=== PATIENT | female | born 1940 | race Caucasian/White ===

== ENCOUNTER → 2017-02-12 | Outpatient (CLI) | payer MEDICARE, OTHER ==
[2016-03-17 08:07] VITALS: BP 163/80
[~2017-02-12] MED LIST: AMLO10TA4 PO; ASPI325T11 PO; BYSTOLIC20 MG PO; CELE200C PO; DENO60DI SQ; DICL100G18 TP; DIPH25CA3 PO; ENOX40DI SQ; ESOM40CA PO; FERR325T58 PO; FLUT12HF3 IH; FLUT1DIS3 IH; FURO-69 PO; GLIM4TAB PO; HYDR-2758 PO; HYDR-2869 PO; INSU100V31 SQ; LIDO700A4 TP; LORA10TA3 PO; LOSA100T2 PO; METO50TA6 PO; MONT10TA9 PO; OXYC-323 PO; POTASSIUM CHLO10 MEQ PO; VENTOLIN HFA18 GM INH
--- NOTE | 2017-02-12 13:52 | KCIC ---
EXAM: Bilateral hips, 2 views. HISTORY: Pain. COMPARISON: None. FINDINGS: Frontal and frog-leg views of both hips are obtained. There is no fracture, dislocation or subluxation. There is minimal right marginal acetabular spurring. There is bilateral femoral artery atherosclerosis. There is degenerative change at the lumbosacral junction. There is a suspected bone island or phlebolith overlying the right sacrum. IMPRESSION: 1. No acute osseous finding. 2. Minimal osteoarthritis involving the right hip. Electronically signed by: Vivian Gabriel MD (02/12/2017 1:48 PM) [id number]
--- NOTE | 2017-02-12 13:53 | KCIC ---
RIGHT HIP AP AND LATERAL Clinical Indication: Bilateral hip pain, osteoarthritis. Comparison: None. Findings: There is no acute fracture or dislocation. There is moderate joint space narrowing of the hip. Visualized pelvic bones appear intact. There is an 11 mm oval calcification that projects over the right sacrum, nonspecific. Arterial calcifications. IMPRESSION: No acute fracture or dislocation. Electronically signed by: Gregory Torres MD (02/12/2017 1:50 PM) [id number]
--- NOTE | 2017-02-12 14:08 | KCIC ---
EXAM: Lumbar spine MRI without contrast. HISTORY: Radiculopathy. TECHNIQUE: Multiplanar, multisequence magnetic resonance imaging of the lumbar spine was performed without contrast. COMPARISON: None. FINDINGS: There is grade 1 anterolisthesis of L5 on S1, measuring 7 mm. There is degenerative endplate remodeling with disc space narrowing predominantly at L4-L5. There is diffuse disc desiccation. No suspicious osseous lesion is seen. There is a right pars interarticularis defect at L5-S1. There are small renal cysts. The conus terminates at L1-L2. At T11-T12, there is a shallow posterior central disc protrusion. There is no stenosis. At T12-L1, there is a minimal disc bulge. There is mild facet arthropathy. There is no stenosis. At L1-L2, there is a mild disc bulge. There is mild facet arthropathy. There is mild bilateral foraminal stenosis. At L2-L3, there is a mild disc bulge. There is mild facet arthropathy. There is hypertrophy of the ligamentum flavum. There is mild right and [id number] left foraminal stenosis. At L3-L4, there is a left foraminal to extraforaminal disc protrusion superimposed on a disc bulge and endplate remodeling. There is mild facet arthropathy. There is hypertrophy of the ligamentum flavum. There is moderate left greater than right foraminal stenosis. There is mild central canal stenosis. At L4-L5, there is a disc bulge and endplate osteophytosis. There is mild right and moderate left facet arthropathy. There is mild bilateral foraminal stenosis. There is mild central canal stenosis. There are right hemilaminectomy changes. At L5-S1, there is a broad-based posterior central to left paracentral disc protrusion with minimal superior extrusion and annular tear superimposed on a disc bulge and endplate remodeling. There is moderate right and severe left facet arthropathy. There is a right pars defect. There is severe right and mild left foraminal stenosis. IMPRESSION: 1. Multilevel degenerative change throughout the lower thoracic and lumbar spine, described in detail above. This results in mild bilateral foraminal stenosis at L1-L2, mild right and mild to moderate left foraminal stenosis at L2-L3, moderate left greater than right foraminal and mild central canal stenosis at L3-L4, mild bilateral foraminal and central canal stenosis at L4-L5, and severe right and mild left foraminal stenosis at L5-S1. 2. Grade 1 anterolisthesis with right pars defect at L5-S1. 3. Right hemilaminectomy changes at L4-L5. Electronically signed by: Vivian Gabriel MD (02/12/2017 2:05 PM) [id number]
== END | disposition home or self-care (01) ==
LOC: KCIC 12:44
PROVIDERS: ATTEND Anesthesiology Pain Medicine
DX: M16.11 Unilateral primary osteoarthritis, right hip (principal); M54.16 Radiculopathy, lumbar region; M48.061 Spinal stenosis, lumbar region without neurogenic claudication; M47.894 Other spondylosis, thoracic region; M47.896 Other spondylosis, lumbar region; M25.552 Pain in left hip
CPT/HCPCS: 72148; 73502

== ENCOUNTER → 2017-03-20 | Outpatient (CLI) | payer MEDICARE, OTHER | END | disposition home or self-care (01) | LOC: PF 10:37 | CPT/HCPCS: 94010; 94729 ==

== ENCOUNTER → 2019-09-17 | Outpatient (CLI) | payer MEDICARE, OTHER ==
[2017-09-11 11:06] VITALS: BP 161/70
[~2019-09-17] MED LIST changes: +ALLO100T PO; +ASPI-612 PO; +CARV6.25 PO; +CELE100C PO; +CHOL100013 PO; -DICL100G18 TP; +DICL100G54 TP; +DIPH25CA23 PO; -DIPH25CA3 PO; +DOXA2TAB2 PO; -HYDR-2758 PO; +HYDR-2761 PO; +LACT1TAB24 PO; +MONT10TA49 PO; -MONT10TA9 PO; +MULT-671 PO; -OXYC-323 PO; +OXYC1TAB15 PO; +PANT20TA2 PO; +POTA10TA12 PO; +POTA10TA6 PO; -POTASSIUM CHLO10 MEQ PO; +SUCR1TAB PO
--- NOTE | 2019-09-17 14:16 | NUR ---
Patient's vitals monitored during MRI. All vitals stable, no issues during MRI. Pacemaker rep at patient side.
--- NOTE | 2019-09-17 15:17 | RAD ---
EXAM: MRI ABDOMEN WITHOUT CONTRAST. HISTORY: Biliary dilatation. TECHNIQUE: MRI of the abdomen was performed without intravenous contrast. Three-dimensional reconstructions of the biliary tree were also performed. COMPARISON: None currently available. FINDINGS: Liver: There is no significant steatosis. There are no suspicious hepatic lesions without contrast. Biliary tree: The gallbladder is surgically absent. The common duct is moderately dilated at 17 mm. There is mild to moderate intrahepatic biliary dilatation. No cause for distal obstruction is identified. There is a low insertion of the cystic duct remnant at the superior margin of the pancreatic head. The distal pancreatic duct is mildly dilated at 4.5 mm. There are mildly dilated pancreatic ductal side branches in the pancreatic tail. There are no suspicious pancreatic parenchymal lesions without contrast. Other findings: Both kidneys are mildly to moderately atrophic. They contain multiple cysts that measure up to 2.4 cm on the right. Some are T1 hyperintense consistent with hemorrhagic or proteinaceous contents. The adrenal glands and spleen are unremarkable. IMPRESSION: 1. Moderate intra and extrahepatic biliary dilatation status post cholecystectomy. No clear cause for distal obstruction is identified. Correlate for cholestasis to assess significance. ERCP could assess for ampullary stenosis if there is persistent concern. 2. Mild pancreatic ductal an side branch dilatation may reflect prior pancreatitis or ampullary stenosis. 3. Multiple bilateral renal cysts, some of which are complicated. Correlate for autosomal dominant polycystic kidney disease or acquired cystic disease. Moderate renal atrophy. Electronically signed by: Diomedes Mcdonough MD (09/17/2019 3:14 PM) [facility]
== END | disposition home or self-care (01) ==
LOC: MRI 12:01
PROVIDERS: ATTEND Family Medicine
DX: N26.1 Atrophy of kidney (terminal) (principal); N28.1 Cyst of kidney, acquired; R93.2 Abnormal findings on diagnostic imaging of liver and biliary tract; Z90.49 Acquired absence of other specified parts of digestive tract; K83.1 Obstruction of bile duct
CPT/HCPCS: 74181